=== PATIENT | male | born 1995 | race American Indian/Alaskan Native ===

== ENCOUNTER 2021-01-23 12:04 | Emergency (ER) | payer OTHER ==
[2021-01-23 13:27] VITALS: BP 150/81
--- NOTE | 2021-01-23 13:56 | Emergency Department Report ---
Chief Complaint: Skin Rash Stated Complaint: RASH ON GENITALS Time Seen by Provider: 01/23/21 13:33 - HPI History of Present Illness: Patient is a 25-year-old male presents emergency room complaints of a rash to the lower abdomen that was present a few days ago. He states now it has completely resolved. He denies any rash to the penis or the scrotum. He denies any fever, nausea, vomiting, diarrhea, dysuria, urinary symptoms, penile discharge. No past medical history. No allergies to medications. Vitals are stable On exam: Non toxic appearing, no acute distress atraumatic, normocephalic normal appearance of the eyes, EOMI, no periorbital edema or ecchymosis moist mucus membranes A&O x4, no focal neuro deficit skin is warm, dry, intact, no rashes Patient showed me a picture on his phone of his rash, it appears that it is in the distribution of the waistband of his pants, it was very mild erythema could have represented a contact dermatitis versus tinea, there is no rash that they are present at all anymore and he has no symptoms currently Patient was also inquiring about a routine STD screening panel I advised patient the emergency room does not emergently run routine STD panels, will give patient appropriate resources Patient has no rash at this time and is currently asymptomatic Discussed the importance of outpatient follow-up Discussed return precautions Medical screening examination performed and there is no threat to life or limb at this time - Exam Vital Signs: Vital Signs 01/23/21 13:26 Temperature 98.7 F Pulse Rate 61 Respiratory 16 Rate Blood Pressure 150/81 [Right] O2 Sat by Pulse 100 Oximetry MSE screening note: Focused history and physical exam performed. ED Disposition for MSE Clinical Impression: Encounter for medical screening examination Disposition: HOME / SELF CARE / HOMELESS Is pt being admited?: No Does the pt Need Aspirin: No Condition: Stable Additional Instructions: please follow up with a clinic or health department. return to the emergency room for any new or worsening symptoms. [facility] Address: [address] [place] [id number] Referrals: [facility] [Outside] - 2-3 Days Time of Disposition: 13:50 Print Language: GABONESE
== END 2021-01-23 14:30 | disposition home or self-care (01) ==
LOC: ED 12:04
DX: Z00.00 Encounter for general adult medical examination without abnormal findings (principal); R21 Rash and other nonspecific skin eruption
CPT/HCPCS: 99281